=== PATIENT | female | born 1980 | race Caucasian/White ===

== ENCOUNTER → 2020-12-05 18:06 | Outpatient (BNVA) | payer OTHER, SELFPAY | PROVIDERS: PCP Family Medicine; Visit Provider Nurse Practitioner Family | DX: M25.522 Pain in left elbow (principal) | CPT/HCPCS: 73080 ==

== ENCOUNTER → 2021-01-02 10:21 | Outpatient (BNVA) | payer OTHER, SELFPAY | PROVIDERS: PCP Family Medicine; Visit Provider Family Medicine | DX: R00.2 Palpitations (principal); D64.9 Anemia, unspecified; H81.4 Vertigo of central origin | CPT/HCPCS: 85018 ==

== ENCOUNTER 2021-04-16 06:00 | Outpatient (CLI) | payer OTHER, SELFPAY | END 2021-04-16 06:01 | disposition home or self-care (01) | LOC: LAB 04-03 14:12 | PROVIDERS: PCP Family Medicine; Visit Provider Family Medicine | DX: H81.4 Vertigo of central origin (principal); Z13.6 Encounter for screening for cardiovascular disorders | CPT/HCPCS: 85025 ==

== ENCOUNTER 2021-04-18 08:18 | Outpatient (CLI) | payer OTHER, SELFPAY ==
[2021-04-18 09:22] LABS: Alanine Aminotransferase 39 U/L (0-33); Albumin Level 4.9 g/dL (3.5-5.2); Alkaline Phosphatase 61 IU/L (35-105); Anion Gap 14.4 (5-19); Aspartate Amino Transferase 33 U/L (0-32); Blood Urea Nitrogen 15 mg/dL (6-20); Calcium 9.3 mg/dL (8.5-10.5); Carbon Dioxide 27 mmol/L (22-29); Chloride 103 mmol/L (98-107); Globulin 2.8 g/dL (1.3-4.6); Glomerular Filtration Rate 92.7 mL/min (90-130); Glucose 82 mg/dL (65-115); Osmolality Calculated 290 mOsm/kg (285-295); Potassium 4.4 mmol/L (3.5-5.1); Sodium 140 mmol/L (136-145); Total Bilirubin 0.6 mg/dL (0.15-1.2); Total Protein 7.7 g/dL (6.6-8.7)
[2021-04-18 09:33] LABS: Basophils # 0.1 10^3/uL (0.0-0.1); Eosinophils # 0.1 10^3/uL (0.0-0.8); Eosinophils % 2.1 %; Hematocrit 47.6 % (37.0-47.0); Hemoglobin 15.2 g/dL (11.5-15.3); Lymphocytes # 1.4 10^3/uL (0.8-4.8); Lymphocytes % 20.2 %; Mean Corpuscular HGB Conc 31.9 g/dL (30.0-36.0); Mean Corpuscular Hemoglobin 30.6 pg (28.0-34.0); Mean Corpuscular Volume 95.8 fL (81-99); Mean Platelet Volume 9.9 fL (7.4-10.4); Monocytes # 0.4 10^3/uL (0.2-0.9); Monocytes % 6.1 %; Neutrophils # 4.67 10^3/uL (1.8-7.7); Neutrophils % 70.2 %; Nucleated Red Blood Cells % 0 %; Platelet Count 237 10^3/cmm (130-400); Red Blood Count 4.97 10^6/uL (4.1-5.3); Red Cell Distribution Width 12.8 % (12.1-15.1); White Blood Count 6.7 10^3/uL (4.0-10.0)
== END 2021-04-18 08:19 | disposition home or self-care (01) ==
PROVIDERS: PCP Family Medicine; Visit Provider Family Medicine
DX: Z13.6 Encounter for screening for cardiovascular disorders (principal); H81.4 Vertigo of central origin
CPT/HCPCS: 36415; 80053; 85025

== ENCOUNTER → 2021-10-14 17:04 | Outpatient (BNVA) | payer OTHER, SELFPAY | PROVIDERS: Visit Provider Nurse Practitioner | DX: N89.8 Other specified noninflammatory disorders of vagina (principal) | CPT/HCPCS: 87070; 87205; 87491; 87591; 87661 ==

== ENCOUNTER 2021-10-31 13:23 | Outpatient (CLI) | payer OTHER, SELFPAY ==
--- NOTE | 2021-10-31 13:39 | MM_ITS ---
WS: [id number] SCREENING DIGITAL MAMMOGRAM WITH CAD HISTORY: SCREENING COMPARISON: 03/25/2010 Bilateral CC and MLO views submitted. Computer aided detection analyzed. Breast composition: There are scattered areas of fibroglandular density. No suspicious masses, microc alcifications or architectural distortion. MM/[id number] IMPRESSION: BI-RADS: 1-Negative FOLLOW UP: 1 Year Follow-up
== END 2021-10-31 13:24 | disposition home or self-care (01) ==
LOC: RADSHAW 13:26
PROVIDERS: PCP Family Medicine; Visit Provider Obstetrics & Gynecology
DX: Z12.31 Encounter for screening mammogram for malignant neoplasm of breast (principal)
CPT/HCPCS: 77067

== ENCOUNTER → 2021-11-21 16:23 | Outpatient (BNVA) | payer OTHER, SELFPAY | PROVIDERS: PCP Family Medicine; Visit Provider Nurse Practitioner | DX: Z11.3 Encounter for screening for infections with a predominantly sexual mode of transmission (principal) | CPT/HCPCS: 87661 ==

== ENCOUNTER → 2021-12-16 10:52 | Outpatient (BNVA) | payer OTHER, SELFPAY | PROVIDERS: PCP Family Medicine; Visit Provider Family Medicine | DX: L65.9 Nonscarring hair loss, unspecified (principal) | CPT/HCPCS: 84443 ==

== ENCOUNTER 2022-12-19 10:24 | Outpatient (CLI) | payer OTHER, SELFPAY ==
--- NOTE | 2022-12-19 10:31 | MM_ITS ---
WS: [id number] VIEWS: MLO and CC views both breasts. 3D digital tomosynthesis is also included in this exam. Comparison made with prior exam of 03/25/2010 and 10/31/2021. Findings: There was no sign of mass, architectural distortion or suspicious calcification in either breast. Sc attered fibroglandular densities MM/[id number] Impression: BI-RADS: 2-Benign FOLLOW-UP: 1 Year Follow-up This mammogram was also analyzed by the Computer Aided Detection System [employer].
== END 2022-12-19 10:25 | disposition home or self-care (01) ==
LOC: RAD 10:25
PROVIDERS: PCP Family Medicine; Visit Provider Family Medicine
DX: Z12.31 Encounter for screening mammogram for malignant neoplasm of breast (principal)
CPT/HCPCS: 77063; 77067

== ENCOUNTER 2022-12-24 15:41 | Outpatient (CLI) | payer OTHER, SELFPAY ==
--- NOTE | 2022-12-24 16:00 | MR_ITS ---
WS: [id number] MRI HEAD WITHOUT CONTRAST TECHNIQUE: Sagittal T1, T2 axial, T2 axial FLAIR, axial and coronal T1 images, axial susceptibility w eighted imaging, axial diffusion weighted images, and coronal T2 images were obtained. CLINICAL INFORMATION: dizziness COMPARISON: None. FINDINGS: No evidence of restricted diffusion to suggest acute ischemia. Ventricular system and basal cisterns are patent. No suspicious intracranial signal abnormalities. Normal vascular flow voids at the skull base. No extra-axial fluid collections. No mass or mass effect. Mild mucosal thickening LEFT maxillar y sinus. Small amount of fluid in the LEFT maxillary sinus Normal optic chiasm and pituitary infundibulum. Normal cavernous sinuses and Meckel's cave. Temporal lobes and hippocampal formations are normal in appearance. Normal posterior nasopharynx. Normal parap haryngeal fat. MR/MR head wo con* [id number] IMPRESSION: 1. No evidence restricted diffusion to suggest acute ischemia. 2. No suspicious intracranial signal abnormalities. Normal moncada-white differen tiation. 3. Mucosal thickening with small amount of fluid in the LEFT maxillary sinus. Paranasal sinuses otherwise well aerated. 4. No hemosiderin on the susceptibly weighted images 5. Temporal lobes and hippocampal formations are normal in appearance.
== END 2022-12-24 15:42 | disposition home or self-care (01) ==
PROVIDERS: PCP Family Medicine; Visit Provider Family Medicine
DX: H81.4 Vertigo of central origin (principal)
CPT/HCPCS: 70551

== ENCOUNTER 2023-01-01 07:57 | Outpatient (CLI) | payer OTHER, SELFPAY ==
[2023-01-01 08:16] LABS: Basophils # 0.1 10^3/uL (0.0-0.1); Basophils % 1.2 %; Eosinophils # 0.1 10^3/uL (0.0-0.8); Eosinophils % 1.8 %; Hematocrit 44.2 % (37.0-47.0); Hemoglobin 14.1 g/dL (11.5-15.3); Lymphocytes # 1.3 10^3/uL (0.8-4.8); Mean Corpuscular HGB Conc 31.9 g/dL (30.0-36.0); Mean Corpuscular Hemoglobin 30.3 pg (28.0-34.0); Mean Corpuscular Volume 95.1 fl (81-99); Mean Platelet Volume 10.6 fL (7.4-10.4); Monocytes # 0.4 10^3/uL (0.2-0.9); Monocytes % 5.1 %; Neutrophils % 75.6 %; Nucleated Red Blood Cells % 0 %; Platelet Count 272 10^3/cmm (130-400); Red Blood Count 4.65 10^6/uL (4.1-5.3); Red Cell Distribution Width 12.9 % (12.1-15.1); White Blood Count 7.8 10^3/uL (4.0-10.0)
[2023-01-01 08:39] LABS: Albumin Level 4.8 g/dL (3.5-5.2); Alkaline Phosphatase 79 U/L (35-105); Anion Gap 16.5 (5-19); Aspartate Amino Transferase 21 U/L (0-32); Blood Urea Nitrogen 14 mg/dL (6-20); Calcium 8.7 mg/dL (8.5-10.5); Carbon Dioxide 24 mmol/L (22-29); Chloride 100 mmol/L (98-107); Globulin 3.1 g/dL (1.3-4.6); Glomerular Filtration Rate 68.7 mL/min (90-130); Glucose 88 mg/dL (65-115); Osmolality Calculated 282 mOsm/kg (285-295); Potassium 4.5 mmol/L (3.5-5.1); Sodium 136 mmol/L (136-145); Total Bilirubin 0.5 mg/dL (0.15-1.2); Total Protein 7.9 g/dL (6.6-8.7)
[2023-01-01 08:59] LABS: Alanine Aminotransferase 16 U/L (0-33)
[2023-01-01 09:45] LABS: Vitamin B12 720 pg/mL (232-1245)
== END 2023-01-01 07:58 | disposition home or self-care (01) ==
LOC: LAB 07:59
PROVIDERS: PCP Family Medicine; Visit Provider Family Medicine
DX: Z13.6 Encounter for screening for cardiovascular disorders (principal); H81.4 Vertigo of central origin
CPT/HCPCS: 80053; 82607; 85025

== ENCOUNTER 2023-01-12 18:56 | Emergency (ER) | payer OTHER, SELFPAY ==
[2023-01-12 19:01] VITALS: BP 138/88; PULSE 83; RESP 18; TEMP 36.4; O2SAT 100
--- NOTE | 2023-01-12 19:40 | XRR_ITS ---
PROCEDURE INFORMATION: Exam: XR Left Knee Exam date and time: 01/12/2023 8:06 PM Age: 42 years old Clinical indication: Pain; Knee; Left; Additional info: Left knee pain, jumped down from tailgate and felt a pop TECHNIQUE: Imaging protocol: Radiologic exam of the Left knee. Views: 3 views. COMPARISON: No relevant prior studies available. FINDINGS: Bones/joints: Normal. Soft tissues: Normal. XR/XR knee LT 3V* [id number] IMPRESSION: No acute findings.
--- NOTE | 2023-01-12 19:48 | ED_ITS ---
HPI - Extremity Problem General: Chief complaint: Extremity Injury, Lower Stated complaint: L knee injury Time Seen by Provider: 01/12/23 19:09 History of Present Illness: Patient is a 43-year-old female comes to the ED with left knee injury. Patient says injury occurred just prior to arrival. She was jumping out of her truck bed and landed on her feet. When she hit the ground she felt a pop in her left knee and some sharp pain. Since injury she is having pain whenever she ambulates and says her left knee feels unsteady and wants to give out. She rates her pain currently a 2 out of 10. Denies any other injuries. Associated symptoms: Deny chest pain, fever(s) or rash Review of Systems Const: Denies: fever(s), chills or fatigue Eyes: Denies: change in vision or eye discomfort ENMT: Denies: throat pain, odynophagia, nasal discharge or nasal congestion Card: Denies: chest pain, palpitations, edema, swelling of feet/ankles, dyspnea on exertion or orthopnea Resp: Denies: dyspnea, productive cough or non-productive cough GI: Denies: abdominal pain, nausea, vomiting, diarrhea, constipation or hematochezia : Denies: flank pain, dysuria or hematuria Musc: Reports: extremity pain (Left knee pain) and limited range of motion (Left knee); Denies: neck pain, back pain or extremity swelling Skin/Breast: Denies: rash or new lesions Neuro: Denies: headache(s), numbness in extremities or weakness in extremities PFS ED PFSH: Medical History Allergic rhinitis Endometriosis, pelvic peritoneum Endometriosis was found at the time of her hysterectomy and BSO in 08/14/2015. On HRT (estrogen and progesterone). Surgical History H/O: hysterectomy (08/14/15) [facility] with BSO. Dx: Pelvic endometriosis, Menorrhagia, Dysmenorrhea. Performed by Dr. Tesfaye at [facility] [place] [place] in [place], [place] Family History Grandmother Breast cancer Dx late 60's. Metastatic at time of diagnosis. Diabetes Grandmother Stroke Father Stroke Hypercholesteremia CAD (coronary artery disease) Mother Hyperlipidemia Denies family history of Colon cancer Ovarian cancer Uterine cancer Thyroid disease Social History Smoking and tobacco status: former smoker Female Reproductive History: Para: 0 Spontaneous abortions: No Physical Exam Const: COMMON NORMALS: no acute distress, patient oriented x3 and alert HENMT: COMMON NORMALS: normocephalic HEAD & SCALP: normocephalic MOUTH: Normal oral and palatal mucosa present THROAT: posterior oropharynx normal and uvula midline Neck/C-Spine: COMMON NORMALS: supple GENERAL: Yes normal visual inspection Resp: COMMON NORMALS: normal respiratory effort, No retractions, No use of accessory muscles and clear to auscultation bilaterally AUSCULTATION: clear to auscultation bilaterally Cardio: COMMON NORMALS: regular rate, regular rhythm, S1 normal heart sound present, S2 normal heart sound present, No gallops present (Cardio), No clicks present (Cardio), No murmurs present (Cardio) and Peripheral pulses 2+ throughout RATE: regular rate RHYTHM: regular rhythm HEART SOUNDS: S1 normal heart sound present and S2 normal heart sound present PERIPHERAL PULSES: Peripheral pulses 2+ throughout GI: COMMON NORMALS: Normal to inspection, nondistended, normoactive bowel sounds present, Soft to palpation, non-tender and no masses PALPATION: Yes Soft to palpation : COMMON NORMALS: Yes no CVA tenderness BLADDER/KIDNEY EXAM: Yes no CVA tenderness Back/Pelvis: COMMON NORMALS: no CVA tenderness Extremity: NARRATIVE EXTREMITY EXAM: Left knee?tenderness to lateral aspect of left knee and superior/medial aspect of knee as well. Limited range of motion?extension of knee due to pain. Neurovascular intact distally. Neuro: COMMON NORMALS: patient oriented x3 SENSORIUM/ORIENTATION: Yes alert GAIT: Yes Normal gait present Skin: GENERAL SKIN EXAM: dry skin Course 2 Vital Signs: Vital signs: Vital Signs Temperature 97.6 F 01/12/23 19:01 Pulse Rate 83 01/12/23 19:01 Respiratory Rate 18 01/12/23 19:01 Blood Pressure 138/88 01/12/23 19:01 Pulse Oximetry 100 01/12/23 19:01 MDM - Extremity (Nontraumatic) Medical Decision Making Patient is a 43-year-old female comes to the ED with left knee injury. Patient says injury occurred just prior to arrival. She was jumping out of her truck bed and landed on her feet. When she hit the ground she felt a pop in her left knee and some sharp pain. Since injury she is having pain whenever she ambulates and says her left knee feels unsteady and wants to give out. She rates her pain currently a 2 out of 10. Denies any other injuries. Vitals are stable. Left knee?tenderness to lateral aspect of left knee and superior/medial aspect of knee as well. Limited range of motion?extension of knee due to pain. Neurovascular intact distally. Rest of exam is benign. X-ray of left knee shows no acute findings. I placed an order with case management for patient referred to Ortho for follow-up on left knee injury. Patient was discharged home with crutches. Return to ED precautions given. Patient understood and agreed with plan. Lab Data Radiology Impressions Knee X-Ray 01/12/23 19:40 IMPRESSION: No acute findings. Discharge Plan Discharge Patient Disposition: Home Clinical Impression: Injury of knee, left Condition: Stable Prescriptions: No Action multivitamin Tablet 1 tab PO DAILY boitin PO DAILY fish oil PO Zyrtec 10 mg capsule 10 mg PO ONCE triamcinolone acetonide [Nasacort] 55 mcg aerosol,spray 1 spray INTRANASAL ONCE estradiol 1 mg tablet 1 mg PO DAILY 30 Days Qty: 90 5RF sertraline 25 mg tablet 50 mg PO DAILY Qty: 90 1RF montelukast 10 mg tablet See Rx Instructions .ROUTE .COMPLEX Qty: 90 3RF Dose Instruction: TAKE 1 TABLET BY MOUTH EVERY DAY Rx Instructions: TAKE 1 TABLET BY MOUTH EVERY DAY Discharge Orders: Discharge ED (Routine); Ordered 01/12/23 Ordered By: Angel Meier Referrals: Mei Muñoz DO [Primary Care Provider] - Discharge Diet: Regular Discharge Activity: Limit activity as instructed and Use walker/crutches as instructed Patient Instructions: Knee Pain (ED) Activity Restrictions/Additional Instructions: Follow-up with medical provider as directed. Case management should contact you in the next several days to set up an appointment with orthopedic doctor for follow-up on knee pain. Use crutches and limit any weightbearing until cleared by Ortho. Rest, ice and elevate left knee. Take [id number] ibuprofen or Tylenol for pain. Return to the ER or your medical provider if condition worsens. Please read and understand discharge instructions. Thank you for choosing [facility] for your healthcare needs today. Please realize this is an emergency room and that we are providing you with a medical screening exam and this may not be complete and all inclusive of all the testing and or work up that you may need to determine your ailment or severity of your illness. It is very important that you follow up as instructed or that you return to the Emergency Department should you have concerns or if your condition changes or worsens in any way. Coding Level of Care Code ED Director Social Welfare for Clara Castellanos
--- NOTE | 2023-01-13 10:26 | DCPLANNER ---
Addendum entered by Jodie Green 01/29/23 08:28: Patient had a follow up appointment scheduled with ortho - patient did attend appointment. Original Note: pilot manager had message to schedule a follow up appointment for patient with ortho. pilot manager sent patients information to the front office staff at ortho. Patients information will be printed and reviewed. Clinic will call patient with appointment information.
== END 2023-01-12 21:19 | disposition home or self-care (01) ==
PROVIDERS: Emergency Provider Physician Assistant; PCP Family Medicine
DX: S89.92XA Unspecified injury of left lower leg, initial encounter (principal); Z87.891 Personal history of nicotine dependence; W17.89XA Other fall from one level to another, initial encounter
CPT/HCPCS: 73562; 99283; E0114

== ENCOUNTER 2023-01-22 13:44 | Outpatient (CLI) | payer OTHER, SELFPAY ==
--- NOTE | 2023-01-22 13:45 | MR_ITS ---
WS: [id number] MRI LEFT KNEE NONCONTRAST TECHNIQUE: Axial PD, coronal PD fat sat, coronal PD, sagittal PD, and sagittal PD fat-sat images obta ined. CLINICAL INFORMATION: pain COMPARISON: None. FINDINGS: Distal quadriceps and patella tendons are intact. Hypertrophic patella. Small suprapatellar effusion. High-grade tear of the ACL with diffuse edema. A few intact fibers visualized in the coronal imaging . Suspected ACL avulsion fracture along the posterior tibial eminence with edema. Some of this may be due to prior injury with subchondral cystic change. No visualized displaced fracture fragments. Chronic thinning of the medial and lateral meniscus. Tear of the posterior horn medial meniscus exten ding to the articular surface. Additional chronic signal abnormality in the posterior horn medial men iscus. Peripheral extrusion medial meniscus. Moderate chondromalacia patella. No subchondral edema. Normal medial and lateral patellar retinaculum . Lobulated popliteal cyst measuring 4.1 x 2.2 x 8.4 cm AP by transverse by craniocaudal. Cystic blackwood ges involving the tibial spines with edema. Medial and lateral collateral ligaments appear intact. No rmal popliteus. MR/MR knee LT wo con* [id number] IMPRESSION: 1. High-grade partial-thickness tear involving the ACL with diffuse edema with a few residual intact fibers seen on the coronal imaging. Normal PCL. 2. Suspected ACL avulsion fracture versus subchondral cystic change along the dorsal ACL fibers posterior tibial eminence with edema 3. Horizontal tear posterior horn medial meniscus extending to the articular s urface. Chronic hazy T2 signal abnormality involving the posterior horn. Periph eral extrusion of the medial meniscus. 4. Moderate chondromalacia patella. Small suprapatellar effusion. 5. Lobulated popliteal cyst measuring 4.1 x 2.2 x 8.4 cm AP by transverse by c raniocaudal Outbridge grading: grade III: partial-thickness cartilage loss with focal ulcer ation
== END 2023-01-22 13:45 | disposition home or self-care (01) ==
LOC: RAD 13:47
PROVIDERS: PCP Family Medicine; Visit Provider Orthopaedic Surgery
DX: M25.462 Effusion, left knee (principal); S83.512A Sprain of anterior cruciate ligament of left knee, initial encounter; X58.XXXA Exposure to other specified factors, initial encounter; S83.242A Other tear of medial meniscus, current injury, left knee, initial encounter; S83.222A Peripheral tear of medial meniscus, current injury, left knee, initial encounter; M22.42 Chondromalacia patellae, left knee; M71.22 Synovial cyst of popliteal space [Baker], left knee
CPT/HCPCS: 73721

== ENCOUNTER 2023-02-12 05:44 | Day surgery (SDC) | payer OTHER, SELFPAY ==
[2023-02-11 13:01] VITALS: BMI 35.4
[2023-02-12] VITALS (15 sets, daily range): BP systolic 113–149; BP diastolic 70–94; PULSE 60–94; RESP 15–26; TEMP 36.1–36.6; O2SAT 94–100
[2023-02-12] MEDS: CELEcoxib 200 mg Capsule 400 MG PO (06:31)
[2023-02-12] MEDS: sodium chloride 0.9% 1,000 ML 30 ML IV (06:31)
[2023-02-12] MEDS: acetaminophen 500 mg Tablet 1000 MG PO (06:32)
[2023-02-12] MEDS: oxyCODONE 20 mg ER (12 HR) Tablet PO (06:32)
[2023-02-12] MEDS: gabapentin 300 mg Capsule PO (06:32)
--- NOTE | 2023-02-12 06:39 | ANES.PREANE2 ---
Pre-Anesthetic Assessment Height/Weight: Height 1.75 m Weight 108.862 kg Temp Pulse Resp BP Pulse Ox O2 Del Method 97.6 F 73 18 124/76 99 02/12/23 06:11 02/12/23 06:11 02/12/23 06:11 02/12/23 06:11 02/12/23 06:11 02/12/23 06:17 Preop Diagnosis: Anterior cruciate ligament tear, medial meniscal tear left knee Operation Date: 02/12/23 07:00 Proposed Procedures p left knee arthroscopy with ACL reconstruction and medial meniscal repair/ [id number],S83.519A, S83.207A(Left) - Narendra Engel MD s ACL reconstruction and medial meniscal repair(Left) - Narendra Engel MD Familial anesthetic complications: None Was Beta Ruby taken within 24 hours: N/A Was Clonidine taken within 24 hours: N/A Last intake: Intake Last Liquid Date 02/11/23 Last Liquid Time 21:00 Last Solid Date 02/11/23 Last Solid Time 18:00 Social Alcohol (2 glasses of wine a night), Tobacco and No tobacco Exam alert, oriented x 3, clear to auscultation bilaterally and regular rate & rhythm Airway Mallampati: Class III Dentition: full Pulmonary Asthma Metabolic Morbid Obesity Neuropsych Anxiety Anesthetic Plan ASA status: 2 Anesthesia: General Risk of > 500 ml blood loss (7ml/kg in children): No Medications/Allergies Home Medications Medication Instructions Recorded Confirmed Last Taken Type boitin PO DAILY 11/29/19 01/27/23 02/11/23 History cetirizine 10 mg capsule (Zyrtec) 10 mg PO ONCE 11/29/19 02/11/23 02/11/23 History fish oil 500 mg PO DAILY 11/29/19 02/11/23 02/04/23 History triamcinolone acetonide 55 mcg 1 spray intranasal ONCE 11/29/19 02/11/23 02/11/23 History nasal spray aerosol (Nasacort) multivitamin 1 tab PO DAILY 03/07/21 02/11/23 02/11/23 History estradiol 1 mg tablet 1 mg PO DAILY 30 days #90 tabs 03/10/22 02/11/23 02/11/23 Rx sertraline 25 mg tablet 50 mg PO DAILY #90 tabs 12/01/22 02/11/23 02/11/23 Rx Allergies Allergy/AdvReac Type Severity Reaction Status Date / Time prednisone Allergy Mild rash Verified 02/11/23 13:05 Penicillins Allergy Unknown Verified 02/11/23 13:05 Current Medications Generic Name Dose Route Start Last Admin Trade Name Yossi PRN Reason Stop Dose Admin Sodium Chloride 1,000 mls @ 30 mls/hr 02/12/23 06:00 02/12/23 06:31 Sodium Chloride 0.9% IV 02/13/23 05:59 30 mls/hr .Q24H STEPHANIE Administration PFSH Anesthesia Medical History Allergic rhinitis Endometriosis, pelvic peritoneum Endometriosis was found at the time of her hysterectomy and BSO in 08/14/2015. On HRT (estrogen and progesterone). Surgical History H/O: hysterectomy (08/14/15) [facility] with BSO. Dx: Pelvic endometriosis, Menorrhagia, Dysmenorrhea. Performed by Dr. Tesfaye at [facility] in [place], [place] Family History Grandmother Breast cancer Dx late 60's. Metastatic at time of diagnosis. Diabetes Grandmother Stroke Father Stroke Hypercholesteremia CAD (coronary artery disease) Mother Hyperlipidemia Denies family history of Colon cancer Ovarian cancer Uterine cancer Thyroid disease Social History Smoking and tobacco status: former smoker Female Reproductive History Para: 0 Spontaneous abortions: No Data Anesthesia Cardiac Studies: No Data to Display
--- NOTE | 2023-02-12 06:49 | W.PM.OPSUD ---
Surgery/Procedure H&P Update DATE OF PROCEDURE: February 12, 2023 DATE H&P PERFORMED: 01/27/23 H&P UPDATE INFORMATION: I have reviewed H&P completed within last 30 days PREOP DIAGNOSIS: Anterior cruciate ligament tear, medial meniscal tear left knee PLANNED PROCEDURE: Operation Date: 02/12/23 07:00 Proposed Procedures p left knee arthroscopy with ACL reconstruction and medial meniscal repair/ [id number],S83.519A, S83.207A(Left) - Narendra Engel MD s ACL reconstruction and medial meniscal repair(Left) - Narendra Engel MD
[2023-02-12] MEDS: midazolam 1 mg/mL INJ 2 mL 2 MG IVP ×2 (06:51→09:37)
[2023-02-12] MEDS: ceFAZolin 2,000 MG in sodium chloride 0.9% (plus) 50 ML 100 MG IV (07:06)
[2023-02-12] MEDS: morphine 4 mg/mL SDV 1 mL 8 MG XX (07:37)
--- NOTE | 2023-02-12 09:09 | P.OP_ITS ---
Operative Report Date of procedure: February 12, 2023 Pre-op diagnosis: Preop Diagnosis Anterior cruciate ligament tear, medial meniscal tear left knee Post-op diagnosis: same Procedure done: Anterior cruciate ligament reconstruction left knee findings are Implants: Fong [employer] Nephew Endobutton 25 mm, Biosuresync sleeve, 9x25mm PK screw Surgeon: Narendra Engel Anesthesia: General Estimated blood loss (mL): 20 Tourniquet time (min): 67 Complications: None Findings: The patient had complete disruption of her anterior cruciate ligament from its origin on the femur. Her menisci were healthy. She had incomplete fissures over the weightbearing aspect of the medial femoral condyle. The remainder of her chondral surfaces were healthy Condition: stable Disposition: PACU Brief History: The patient is a 42-year-old female who sustained an injury to her left knee when she jumped from a tailgate on 01/12/2023. An MRI suggested an acute anterior cruciate ligament tear. Reconstruction was chosen to improve stability and and able a higher level of function. Procedure: Patient was taken to the operating room and given a general anesthesia. He was given 2 g of Ancef she is prepped and draped in the supine position with a tourniquet on the left leg. Her knee was infiltrated with 30 cc of 0.5% Marcaine and 8 mg of morphine. A timeout was performed. The knee was entered through a standard inferior medial and inferior lateral portal. The diagnostic portion arthroscopy was performed. The menisci were carefully probed and found to be intact. Tear of the anterior cruciate ligament from its femoral origin was noted. Several fissures were identified over the weightbearing aspect the medial femoral condyle is no unstable cartilage to a benefit from treatment. Attention was then paid to the anterior cruciate ligament. Utilizing an incisor shaver small amount of lateral wall was resected allowing visualization of the posterior lateral intercondylar notch. A 3 cm long incision was then made over the medial tibial plateau and dissection carried down with blunt scissors identifying a well-defined semi-tendinosis and gracilis graft. The 2 grafts were freed off their insertion on the tibia and fixed with a Fong [employer] Nephew Ultrabraid suture. Using the closed ended tendon stripper to grafts were harvested. On the back table with her freed of muscle and the free ends fixed with the Ultrabraid suture. They were pretensioned on the back table. They were measured and fit snugly through a 9 mm tunnel with a tripled semitendinosis and doubled smaller gracilis graft. Using the anatomic femoral footprint guide, a guidepin was driven up from the 1:30 position exiting superior and lateral femur. Tunnel depth was measured at 47.5 mm mm. The Endobutton reamer was passed over the guide pin confirming the length of tunnel. A 9 mm reamer was then passed to a depth of 30 mm mm. The Fong [employer] Nephew ProTrac guide was used to pass a guidepin from the medial tibia exiting the tibial footprint. . A 9.5 mm reamer was passed over the guidepin exiting the tibial footprint of the anterior cruciate ligament. On the back table, the semitendinosis graft was doubled through a 25 mm closed loop Endobutton and the largest suture and tied back on through the Endobutton loop performing a triple construct. Gracilis tendon was simply doubled through the graft.. This allowed 22.5 mm of tendon to be buried in the femur and allowed more than sufficient room to flip the Endobutton. The grafts were shuttled from the tibia through the femur using an ultra braid suture. The Endobutton was felt to flip on the lateral cortex and secured with tension on the sutures to the tibia. A Fong [employer] Nephew Biosure Sync sleeve was placed and was secured with a 10 x 25 mm Biosure PK screw. The knee and medial wounds were irrigated with saline. The sartorius fascia was closed with 2-0 Vicryl. Deep tissues were closed with 2-0 Vicryl. The tibial wound was closed with a running 3-0 Prolene. Portals were closed with 3-0 Prolene. Steri-Strips were applied over the tibial incision. Sterile dressings were applied. The patient was placed in a hinged knee brace locked in full e xtension. They were taken to recovery room in stable condition.
[2023-02-12] MEDS: fentaNYL 50 mcg/mL INJ 2mL IVP (09:25)
[2023-02-12] MEDS: ondansetron 2 mg/ML SDV 2 mL 4 MG IVP (09:26)
--- NOTE | 2023-02-12 14:42 | ANE.PACU2 ---
Inpatient post-anesthesia follow up: Airway intact: Yes Vital signs: Temperature 97.9 F Pulse Rate 77 Respiratory Rate 18 Blood Pressure 128/85 Pulse Oximetry 95 Oxygen Delivery Me thod Room Air Oxygen Flow Rate 6 Fraction of Inspir ed Oxygen Hydration adequate: Yes Nausea and vomiting: No Pain level: 1 Mental status: Baseline
--- NOTE | 2023-02-12 14:43 | ANES.PROC ---
Anesthesia Procedures Procedure/Date: 02/12/23 Nerve Block ^: Nerve Block 1: Main Anesthesia: general anesthesia Time Out Performed: Yes Consent: requested by attending/covering physician, from patient, risks and benefits reviewed and patient agrees to proceed Nerve block location: adductor canal (L) Anesthesia monitors applied: pulse oximetry, EKG, BP cuff and oxygen Nerve block position: supine Anesthetic Used: ropivicaine 0.5% (30 ml) and with decadron (4 mg) Ultrasound used to: recognize landmarks Nerve Stimulator Used?: No Interscalene/Femoral BLK: 4 stimuplex 21 g needle used for position and inplane approach, visualize local anesthetic spread and no vascular puncture identified Patient Tolerated Procedure: well and no complications
== END 2023-02-12 11:50 | disposition home or self-care (01) ==
PROVIDERS: PCP Family Medicine; Visit Provider Orthopaedic Surgery
PROC: (CPT 29870; principal; 2023-02-12 07:00)
PROC: (CPT 27407; 2023-02-12 07:00)
DX: S83.512A Sprain of anterior cruciate ligament of left knee, initial encounter (principal); X58.XXXA Exposure to other specified factors, initial encounter; E66.01 Morbid (severe) obesity due to excess calories; Z68.35 Body mass index [BMI] 35.0-35.9, adult; F41.9 Anxiety disorder, unspecified; Z87.891 Personal history of nicotine dependence
CPT/HCPCS: 29888; J0690; J1100; J1885; J2250; J2270; J2405; J2704; J2710; J2795; J3010; J3490; J7030; L1812

== ENCOUNTER 2023-02-13 10:53 | Outpatient (RCR) | payer OTHER, SELFPAY | END 2023-02-20 23:59 | disposition home or self-care (01) | LOC: SPT 10:53 | PROVIDERS: PCP Family Medicine; Visit Provider Orthopaedic Surgery | DX: S83.511D Sprain of anterior cruciate ligament of right knee, subsequent encounter (principal); X58.XXXD Exposure to other specified factors, subsequent encounter | CPT/HCPCS: 97110; 97161 ==

== ENCOUNTER 2023-02-21 06:00 | Outpatient (RCR) | payer OTHER, SELFPAY | END 2023-03-22 23:59 | disposition home or self-care (01) | LOC: SPT 06:00 | PROVIDERS: PCP Family Medicine; Visit Provider Orthopaedic Surgery | DX: Z47.89 Encounter for other orthopedic aftercare (principal) | CPT/HCPCS: 97110 ==

== ENCOUNTER → 2023-03-20 15:00 | Outpatient (BNVA) | payer OTHER, SELFPAY | PROVIDERS: PCP Family Medicine; Visit Provider Obstetrics & Gynecology | DX: E89.40 Asymptomatic postprocedural ovarian failure (principal); Z20.2 Contact with and (suspected) exposure to infections with a predominantly sexual mode of transmission | CPT/HCPCS: 87491; 87591; 87661 ==

== ENCOUNTER 2023-03-23 06:00 | Outpatient (RCR) | payer OTHER, SELFPAY | END 2023-04-22 23:59 | disposition home or self-care (01) | LOC: SPT 06:00 | PROVIDERS: PCP Family Medicine; Visit Provider Orthopaedic Surgery | DX: S83.511D Sprain of anterior cruciate ligament of right knee, subsequent encounter (principal); X58.XXXD Exposure to other specified factors, subsequent encounter | CPT/HCPCS: 97110 ==

== ENCOUNTER 2023-04-23 06:00 | Outpatient (RCR) | payer OTHER, SELFPAY | END 2023-05-22 23:59 | disposition home or self-care (01) | LOC: SPT 06:00 | PROVIDERS: PCP Family Medicine; Visit Provider Orthopaedic Surgery | DX: S83.511D Sprain of anterior cruciate ligament of right knee, subsequent encounter (principal); X58.XXXD Exposure to other specified factors, subsequent encounter | CPT/HCPCS: 97110 ==

== ENCOUNTER 2023-05-23 06:00 | Outpatient (RCR) | payer OTHER, SELFPAY | END 2023-05-28 23:59 | disposition home or self-care (01) | LOC: SPT 06:00 | PROVIDERS: PCP Family Medicine; Visit Provider Orthopaedic Surgery | DX: Z47.89 Encounter for other orthopedic aftercare (principal) | CPT/HCPCS: 97110 ==

== ENCOUNTER → 2023-06-19 14:07 | Outpatient (BNVA) | payer OTHER, SELFPAY | PROVIDERS: PCP Family Medicine; Visit Provider Nurse Practitioner Family | DX: Z20.2 Contact with and (suspected) exposure to infections with a predominantly sexual mode of transmission (principal) | CPT/HCPCS: 87491; 87591 ==

== ENCOUNTER → 2023-06-21 10:08 | Outpatient (BNVA) | payer OTHER, SELFPAY | PROVIDERS: PCP Family Medicine; Visit Provider Nurse Practitioner Family | DX: Z20.2 Contact with and (suspected) exposure to infections with a predominantly sexual mode of transmission (principal) | CPT/HCPCS: 87661 ==

== ENCOUNTER → 2024-04-04 15:12 | Outpatient (BNVA) | payer OTHER, SELFPAY | PROVIDERS: PCP Family Medicine; Visit Provider Family Medicine | DX: N89.8 Other specified noninflammatory disorders of vagina (principal); F41.1 Generalized anxiety disorder; E66.9 Obesity, unspecified | CPT/HCPCS: 87070; 87077; 87205 ==

== ENCOUNTER 2024-04-22 07:22 | Outpatient (CLI) | payer OTHER, SELFPAY ==
--- NOTE | 2024-04-22 07:30 | MM_ITS ---
WS: [id number] BILATERAL SCREENING DIGITAL TOMOSYNTHESIS MAMMOGRAM WITH CAD HISTORY: screening COMPARISON: 12/19/2022, 10/31/2021 Bilateral CC and MLO views with tomosynthesis and synthetic mammography submitted. Computer aided det ection analyzed. Breast composition: There are scattered areas of fibroglandular density. No suspicious masses, microc alcifications or architectural distortion. MM/[place] [id number] IMPRESSION: BI-RADS: 1-Negative FOLLOW UP: 1 Year Follow-up
== END 2024-04-22 07:23 | disposition home or self-care (01) ==
LOC: RAD 07:22
PROVIDERS: PCP Family Medicine; Visit Provider Family Medicine
DX: Z12.31 Encounter for screening mammogram for malignant neoplasm of breast (principal); R92.323 Mammographic fibroglandular density, bilateral breasts
CPT/HCPCS: 77063; 77067

== ENCOUNTER → 2024-12-21 08:54 | Outpatient (BNVA) | payer OTHER, SELFPAY | DX: E66.9 Obesity, unspecified (principal) | CPT/HCPCS: 80053; 80061; 85025 ==

== ENCOUNTER 2025-05-02 07:51 | Outpatient (CLI) | payer OTHER, SELFPAY ==
--- NOTE | 2025-05-02 | MM_ITS ---
WS: [id number] BILATERAL 3D TOMOSYNTHESIS DIGITAL SCREENING MAMMOGRAPHY WITH CAD CLINICAL INFORMATION: ANNUAL SCREENING HISTORY: Screening mammogram. No current complaints. COMPARISON: 2023 TECHNIQUE: Bilateral CC and MLO views. FINDINGS: Scattered fibroglandular densities bilaterally. No suspicious focal mass, asymmetry, calcifications, or architectural distortion. No evidence of malignancy. MM/MM scr BI tomosynthesis [id number] IMPRESSION: DENSITY: There are scattered areas of fibroglandular density. BI-RADS: 1 - Negative. FOLLOW UP: 1 Year Follow-up Recommend return to annual screening mammography.
== END 2025-05-02 07:52 | disposition home or self-care (01) ==
PROVIDERS: Visit Provider Family Medicine
DX: Z12.31 Encounter for screening mammogram for malignant neoplasm of breast (principal); R92.323 Mammographic fibroglandular density, bilateral breasts
CPT/HCPCS: 77063; 77067